=== PATIENT | male | born 1985 | race Caucasian/White ===

== ENCOUNTER 2021-09-17 16:59 | Emergency (ER) | payer BC, SELFPAY ==
--- NOTE | ~2021-09-17 | XR_ITS ---
XR ankle LT min 3V DATE: 09/17/2021 17:18 INDICATION: Injury, left ankle and foot pain TECHNIQUE: 4 views COMPARISON: None FINDINGS: There is mild lateral soft tissue swelling. There is a small cortical avulsion fracture superior to the anterior process of the talus, of uncerta in age. Recommend clinical correlation for point tenderness. No other fracture or dislocation of the ankle or disruption of the ankle mortise is detected. IMPRESSION: Mild lateral soft tissue swelling of the ankle Small cortical avulsion fracture from the dorsal aspect of the anterior process of the talus, uncerta in age Reviewed, dictated and finalized at location B. IMPRESSION: Mild lateral soft tissue swelling of the ankle Small cortical avulsion fracture from the dorsal aspect of the anterior process of the talus, uncertain age
--- NOTE | ~2021-09-17 | XR_ITS ---
XR foot LT min 3V DATE: 09/17/2021 17:18 INDICATION: Injury, pain TECHNIQUE: 4 views COMPARISON: None FINDINGS: Small cortical avulsion fracture is noted at the dorsal lateral aspect of the anterior proc ess of the talus, consistent with small cortical avulsion fracture of uncertain age. Fracture fragments from the anterolateral aspect of the calcaneus is suggested. Soft tissue swelling. No other fracture or dislocation of the left foot is detected. IMPRESSION: Small cortical avulsion fracture of uncertain age from the dorsal lateral aspect of the a nterior process of the talus Suspected cortical avulsion fracture fragments from the anterolateral aspect of the calcaneus; consid er CT for examination for more definitive evaluation Reviewed, dictated and finalized at location B. IMPRESSION: Small cortical avulsion fracture of uncertain age from the dorsal l ateral aspect of the anterior process of the talus Suspected cortical avulsion fracture fragments from the anterolateral aspect of the calcaneus; consider CT for examination for more definitive evaluation
--- NOTE | 2021-09-17 17:14 | ED.LOWEXIN ---
HPI - Extremity Injury (Lower) General Chief Complaint: Extremity Injury, Lower Stated Complaint: left ankle injury Time Seen by Provider: 09/17/21 17:14 Source: patient and RN notes reviewed Mode of arrival: ambulatory Limitations: no limitations History of Present Illness HPI Narrative: 36-year-old male presents to the [facility] with complaints of left lateral ankle and foot pain, swelling and bruising. Patient reports that him and his son were jumping, ground-level kind of like box jumping. States he landed on the ground and rolled his ankle on Friday, 2 days ago. Has traveled 8 hours from [place]. Has been icing and elevating. Denies any previous trauma's. Positive pedal pulse noted. Sensation intact in all 5 toes. Capillary refill under 2 seconds Related Data Home Medications Medication Instructions Recorded Confirmed meloxicam 7.5 mg tablet 7.5 mg PRN 09/17/21 09/17/21 Allergies Allergy/AdvReac Type Severity Reaction Status Date / Time No Known Allergies Allergy Verified 09/17/21 17:40 Review of Systems Review of Systems: All systems reviewed & are unremarkable except as noted in HPI and below Constitutional: Constitutional: Reports no additional constitutional complaints, Denies chills and Denies fever(s) Eyes: Eyes: Reports no additional eye complaints ENT: Reports system reviewed and no additional complaints, except as documented Cardiovascular: Cardiovascular: Reports no additional cardiovascular complaints Respiratory: Respiratory: Reports no additional respiratory complaints Gastrointestinal: Gastrointestinal: Reports no additional gastrointestinal complaints Musculoskeletal: Musculoskeletal: Reports as per HPI, Reports arthralgias and Reports joint swelling Integumentary/Breasts: Skin/Breast: Reports system reviewed and no additional complaints, except as docu Neurologic: Reports system reviewed and no additional complaints, except as documented Psychiatric: Psychiatric: Reports no additional psychiatric complaints Allergic/Immunologic: Allergic/Immunologic: Reports no additional allergic/immunologic complaints [facility] Past Medical History Medical History (Updated 09/17/21 @ 20:19 by Cookie Emmanuel APRN) Patient denies medical problems Surgical History Surgical History (Updated 09/17/21 @ 20:17 by Cookie Emmanuel APRN) No pertinent past surgical history Social History Social History (Updated 09/17/21 @ 20:17 by Cookie Emmanuel APRN) Living arrangements: with friend(s) Gender identity (if verbalized by the patient): Male Comments At the time of my signature, I reviewed and agree with the nursing past medical, surgical, social, and family history. There is no relevant family history pertinent to the patient complaint. Exam Const: General: healthy appearing, no acute distress and alert Nutritional Appearance: well nourished Orientation/consciousness: patient oriented x3 Limitations: no limitations HENMT: Head: normal to inspection Ears: external ears normal Eyes: General: appearance normal, both eyes and all related structures Pupils: Equal, round and reactive pupils present Neck: Neck: normal visual inspection, no lymphadenopathy and no meningeal signs Chest: Chest palpation & inspection: normal inspection of the chest Resp: Effort & Inspection: normal respiratory effort and no use of accessory muscles Auscultation: clear to auscultation bilaterally, no crackles, no rales, no rhonchi and no wheezes Cardio: Rate: regular rate Rhythm: regular rhythm Back/Spine/Pelvis: Cervical Spine: normal cervical lordosis Thoracic/Lumbar Spine: thoracic and lumbar spine normal to inspection Skin: General skin exam: normal color Rashes: no rashes Wounds: no wounds Neuro: General: patient oriented x3, moves all extremities, no meningeal signs and no focal motor deficits Cranial nerves: Yes Equal, round and reactive pupils present Speech: normal speech Gait exam (
[2021-09-17 17:19] VITALS: BP 120/82; PULSE 88; RESP 16; TEMP 37; O2SAT 100
== END 2021-09-17 18:25 | disposition home or self-care (01) ==
PROVIDERS: Emergency Provider Nurse Practitioner
DX: S92.192A Other fracture of left talus, initial encounter for closed fracture (principal); S92.002A Unspecified fracture of left calcaneus, initial encounter for closed fracture; X50.9XXA Other and unspecified overexertion or strenuous movements or postures, initial encounter
CPT/HCPCS: 29515; 73610; 73630; 99214; G0463